=== PATIENT | female | born 1960 | race Caucasian/White ===

== ENCOUNTER 2019-04-11 07:24 | Day surgery (SDC) ==
[2019-04-04 10:12] LABS: BASO# 0.02 X1000 (0.0-0.2); BASO% 0.4 % (0.0-0.8); EOS# 0.23 X1000 (0.0-0.7); EOS% 4.5 % (0.0-10.0); HEMATOCRIT 39.6 % (37.0-47.0); HEMOGLOBIN 12.6 g/dL (12.0-16.0); LYMPH# 1.95 X1000 (1.2-3.4); LYMPH% 38.5 % (20.5-51.1); MCH 29.7 PG (27-31); MCHC 31.8 g/dL (33-37); MCV 93.4 FL (81-99); MONO# 0.42 X1000 (0.11-0.59); MONO% 8.3 % (1.7-9.3); MPV 9.1 FL (7.4-10.4); NEUT# 2.44 X1000 (1.4-6.5); NEUT% 48.3 % (42.2-75.2); PLT 307 X1000 (130-400); RBC 4.24 XMIL (4.2-5.4); RDW 12.7 % (11.5-14.5); WBC 5.06 X1000 (4.8-10.8)
--- NOTE | 2019-04-10 16:33 | HISTORY AND PHYSICAL ---
HISTORY: The patient is a 58-year-old female who was referred to me approximately 2 months ago by primary care physician in the [facility]. She subsequently was then referred to DR. Anjel Avila in that same region who subsequently referred her for evaluation in our area. The patient is feeling a bulging, and is able to visualize the defect when using a mirror. When she bears down really hard for bowel movement, she especially notes worsening of the symptoms. She has been managed with 3 different types of pessaries by DR. Avila in the [facility]. She is now wishing to proceed with surgical intervention. The risks and benefits have been discussed at length. PAST MEDICAL HISTORY: Positive for breast cancer and a melanoma involving the left arm with node dissection in that area. She also has problems with hypothyroidism and hypercholesterolemia. PAST SURGICAL HISTORY: Positive for vaginal hysterectomy, bilateral salpingo-oophorectomy, bilateral total mastectomies, laparoscopic cholecystectomy and anterior colporrhaphy performed with a Sumaya graft, and a posterior compartment defect repair. She is noted to be a para 2, 0-0-2 with both deliveries being vaginal. ALLERGIES: Levaquin. CURRENT MEDICATIONS: Levothyroxine 112 mcg. FAMILY HISTORY: Positive for colon cancer in her maternal grandmother and for breast cancer in her mother. 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 PHYSICAL EXAMINATION: GENERAL: BMI is 26. HEENT: Normocephalic, atraumatic. PERRLA. EOMI. No thyromegaly. CV: Regular rate and rhythm without murmur, gallop, or rub. PULMONARY: Clear to auscultation and percussion. ABDOMEN: Soft. : POP-Q stage III prolapse with AB at +2, C is -6 and TBL is 11. She has bilateral apical detachment as well. The posterior compartment has been corrected with a Sumaya graft. NEUROLOGIC: Afocal. EXTREMITIES: Without clubbing, cyanosis, or edema. ASSESSMENT AND PLAN: The patient has primarily apical anterior defect that has not responded to [place] tissue and Sumaya graft repair. She is wishing to proceed with surgical intervention. She is admitted at this time for robotic sacrocolpopexy with mid urethral sling using Obtryx. The risks and benefits of this procedure were explained at length. She understands and is wishing to proceed. cc: Pramod Tena MD
[2019-04-11] MEDS ORDERED: LR 1,000 ML ONE ×3 (07:46→14:08)
[2019-04-11] MEDS ORDERED: PEPCID ONE (07:46)
[2019-04-11] MEDS ORDERED: REGLAN ONE (07:46)
[2019-04-11] MEDS ORDERED: KEFZOL 1 GM/D5W 2 GM/100 ML IVPB ONE (07:47)
[2019-04-11] MEDS ORDERED: DIPRIVAN 1% ONE (07:57)
[2019-04-11] MEDS ORDERED: XYLOCAINE-MPF 2% ONE (07:58)
[2019-04-11] MEDS ORDERED: ZEMURON ONE ×2 (07:58→12:07)
[2019-04-11] MEDS ORDERED: VERSED ONE (07:59)
[2019-04-11] MEDS ORDERED: MARCAINE 0.5% ONE (09:24)
[2019-04-11] MEDS ORDERED: D10W 1,000 ML ONE (09:24)
--- NOTE | 2019-04-11 10:09 | H&P REVIEW ---
H&P Update H&P Review: H&P was reviewed and patient was examined, No change has occurred in the patient's condition
[2019-04-11] MEDS ORDERED: FENTANYL ONE (10:32)
[2019-04-11] MEDS ORDERED: ZOFRAN ONE (12:16)
[2019-04-11] MEDS ORDERED: DECADRON ONE (12:16)
[2019-04-11] MEDS ORDERED: NEOSTIGMINE ONE (12:17)
[2019-04-11] MEDS ORDERED: TORADOL ONE (12:22)
[2019-04-11] MEDS ORDERED: DEMEROL ONE (13:49)
[2019-04-11 13:51] LABS: URINE SOURCE CATH
[2019-04-11 13:55] LABS: BILIRUBIN URINE NEGATIVE (NEGATIVE); BLOOD URINE NEGATIVE (NEGATIVE); COLOR STRAW; GLUCOSE URINE NEGATIVE (NEGATIVE); KETONE URINE NEGATIVE (NEGATIVE); LEUKOCYTES URINE NEGATIVE (NEGATIVE); NITRITE URINE NEGATIVE (NEGATIVE); PH URINE 6.5; PROTEIN URINE NEGATIVE (NEGATIVE); SP GRAVITY URINE 1.006; TURBIDITY URINE CLEAR (CLEAR); UROBILINOGEN URINE NORMAL (NORMAL)
[2019-04-11 13:56] LABS: UR EPITHELIAL CELLS <10 /HPF (<10); URINE BACTERIA NEGATIVE /HPF; URINE RBC <10 /HPF (<10); URINE WBC <10 /HPF (<10)
[2019-04-11] MEDS ORDERED: NORCO-5 ONE (14:08)
[2019-04-11] MEDS: DILAUDID ONE ×2 (14:08→14:18)
[2019-04-11] MEDS ORDERED: NORCO-5 PO PRN (14:46)
--- NOTE | 2019-04-11 18:28 | PROGRESS NOTE ---
DATE: 04/11/2019 TIME: 4:25 p.m. SUBJECTIVE: Patient is alert and oriented x3, her is in the room with her. OBJECTIVE: Afebrile. Vital signs are stable. Urine output is clear and adequate. ASSESSMENT/PLAN: Routine postoperative care. We will plan on discharge in the morning after completion of her voiding trial. cc: Pramod Tena MD
[2019-04-11] MEDS: TORADOL IV SCH (19:11)
--- NOTE | 2019-04-11 19:24 | OPERATIVE NOTE ---
PROCEDURE DATE: 04/11/2019 PREOPERATIVE DIAGNOSIS: Symptomatic pelvic organ prolapse. POSTOPERATIVE DIAGNOSIS: Symptomatic pelvic organ prolapse. PROCEDURE: 1. Da Nick abdominal sacrocolpopexy. 2. Mid urethral sling with Obtryx. SURGEON: Pramod Tena MD. FLEXOGRAPHIC PRESS SET UP OPERATOR: Kia Vital MD ESTIMATED BLOOD LOSS: 50 mL. HISTORY: The patient is a 58-year-old female been followed by Dr. Momo Avila in the [place] area with a history of prior hysterectomy and [place] tissue repair for pelvic organ prolapse. The patient had a recurrence of her prolapse and is wishing to proceed with surgical intervention. OPERATIVE FINDINGS: The patient was found to have POP-Q stage III prolapse with normal bladder after completion of the procedure and bilateral ureteral efflux. OPERATIVE PROCEDURE: Patient taken to operating room, placed supine position. After adequate general anesthesia obtained she was placed in the [facility] and her abdomen and vagina was prepped and draped in the usual fashion. A repeat umbilical incision was made and carried down through the deep layers. A 12 mm port and sheath were introduced through this incision into the peritoneal cavity. Pelvic contents were visualized, therefore insufflation with CO2 and intraabdominal pressure 14 was performed. Left-sided ports were placed under direct visualization the laparoscoped after infiltration with 0.25% Marcaine and then the right-sided ports were placed in a similar fashion as well after anesthetic injection. At this time, the patient was placed in deep Trendelenburg position and EEA sizers were placed within the vagina and the anus and Vásquez catheter was placed. Robot was docked in the usual fashion. Hot scissors in the right hand, bipolar PK was in the left hand and Cadiere grasper was in the 3rd arm. Dr. Vital actually started with our initial consult time performing lysis of adhesions to visualize the vaginal apex. She also dissected out the vesicovaginal space and the rectovaginal space. This was done primarily with sharp dissection, I was in the room the entire time and monitoring her progress and assisting her with her dissection. However she was the physician sitting at the console. During this portion of the time we got down with our anterior dissection to just above urethrovesical neck and then we got down to within approximately 3 cm of the perineal body in the posterior compartment. We went up the sacral promontory and I assisted with the dissection at the sacral promontory. We easily isolated the L5-S1 promontory. We lifted peritoneum over this area, opened it sharply and dissected down to the anterior longitudinal ligament. We then created a tunnel starting at the promontory extending down to our prior posterior dissection. I trimmed the mesh off with approximately 8 to 10 cm anteriorly and 10 cm posteriorly. The 3rd arm was trimmed for the approximated length of our suspension and then the mesh was introduced intraabdominally. Starting in the anterior compartment Dr. Vital placed most of the sutures in the anterior compartment fixating the mesh to the vesicovaginal vaginal tissue using 2.0 Katy-Trey sutures. All knots were thrown with initial surgeon's throw and 4 half throws after this and we placed approximately 12 sutures in the anterior compartment. I did most of the apical and posterior compartment sutures and we placed approximately 12 sutures in the posterior compartment as well in a similar knot arrangement. The 3rd arm was brought up to the promontory and I placed the initial suture through the anterior longitudinal ligament securing at this point and then Dr. Vital placed a 2nd suture through the anterior longitudinal ligament as well. Excessive mesh was trimmed off and we then used a V-Loc suture to re-peritonealize all the mesh, all the mesh was covered with the peritonealization. Copious amounts of irrigation was performed. Our blood loss at this time had been less than 10 mL. At this time, all equipment was removed from patient's abdomen. The robot was undocked and a Rolan-Rafy closure system was utilized to close the fascia of both the umbilical port and the assistance port using Vicryl suture. Abdomen was deflated of CO2 as all other ports removed and then nursing services closed all skin incisions with subcuticular 4.0 Vicryl ligature. Vaginally we had excellent support anteriorly, apically and posteriorly with no abnormalities whatsoever and no banding. Dr. Vital then proceeded with placement of a mid urethral sling. The urethra was grasped proximally and distally with Allis clamps and approximately 8-10 mL of 0.25% Marcaine with epinephrine were injected for hydrodissection of the area. A sagittal incision was made and then Metzenbaum scissors were utilized to dissect up towards the ischial pubic ramus on each side at the 10 o'clock and [address] Vital had some extension of her vaginal incision from gentle tearing of the tissue. She initially identified the left obturator canal using stuffing machine operator's finger in the midurethral incision, she made a stab incision based on the bony landmark of the ischial pubic ramus and the insertion of the adductor longus. Halo device was introduced through this incision to her finger which directed the needle out. The mesh was attached to it and the mesh was retracted back through the skin. This was performed on the contralateral side. She also had extension of the vaginal incision on this side as well. At this time Vásquez catheter had been removed and cystoscope was placed. There was no evidence of any abnormality within the bladder whatsoever and both ureters were effluxing urine. Cystoscope was removed and Meghna clamp was placed the midurethral position. The tape was brought up the Meghna clamp, blue tag was excised and the sheaths were easily removed. There was no tension on the mesh whatsoever and Vásquez catheter was placed. The mid urethral incision was closed in a horizontal fashion because of the extensions of the incisions and this was easily done. No other abnormalities were noted. Rectal examination was performed and no abnormalities were noted. The patient was taken out of low adjustable stirrups. She was awakened taken recovery with vital signs stable. Sponge count, instrument count, needle counts correct x3. cc: MD FRANCES Wolff
[2019-04-11] MEDS: COLACE PO SCH (20:51)
[2019-04-11] MEDS: PERIDEX MT SCH (20:51)
[2019-04-11] MEDS: LR 1,000 ML IV SCH (20:53)
[2019-04-12] MEDS: TORADOL IV SCH ×2 (01:51→06:24)
[2019-04-12] MEDS: LR 1,000 ML IV SCH (06:23)
[2019-04-12] MEDS ORDERED: SYNTHROID PO SCH (07:00)
[2019-04-12] MEDS: PERIDEX MT SCH (08:59)
[2019-04-12] MEDS: COLACE PO SCH (08:59)
[2019-04-12] MEDS ORDERED: CRESTOR PO SCH (09:00)
[2019-04-12] MEDS ORDERED: TUMS PO ONE (11:39)
[2019-04-12 11:58] VITALS: BP 100/60
--- NOTE | 2019-04-13 06:50 | DISCHARGE SUMMARY ---
ADMISSION DATE: 04/11/2019 DISCHARGE DATE: 04/12/2019 PRINCIPAL DIAGNOSIS: Pelvic organ prolapse. PROCEDURE: Da Nick abdominal sacrocolpopexy, mid urethral sling with Obtryx. HISTORY: The patient is a 58-year-old female with a history of prior vaginal reconstruction for pelvic organ prolapse. She has had a recurrence who failed pessary management and wished to proceed with surgical intervention. HOSPITAL COURSE: Patient underwent the above-stated procedure. Blood loss at that time was approximately 40 mL. Her postoperative course has been uncomplicated. She is currently undergoing voiding trial, and will be discharged home with instructions for followup in 3 weeks. DISCHARGE MEDICATIONS: [place] and Colace. DISCHARGE INSTRUCTIONS: She was instructed on a regular diet and decreased activity. cc: Pramod Tena MD
== END 2019-04-12 12:11 | disposition home or self-care (01) ==
LOC: 4N 07:24 → OR 07:24
PROVIDERS: ATTEND Obstetrics & Gynecology